=== PATIENT | female | born 1955 | race Caucasian/White ===

== ENCOUNTER 2017-11-22 14:57 | Emergency (ER) | payer OTHER ==
[2017-11-22] MEDS ORDERED: guaiFENesin 100 mg/5 ml Syrup UD PO STA (15:38)
--- NOTE | 2017-11-22 15:49 | ED PDOC ---
HPI: Headache Time Seen by Provider: 11/22/17 15:16 Chief Complaint (Nursing): Headache Chief Complaint (Provider): Headache, Dizziness, Cough History Per: Patient History/Exam Limitations: no limitations Onset/Duration Of Symptoms: Days (x2 weeks) Current Symptoms Are (Timing): Still Present Additional Complaint(s): 62 year old female presents to the ED for evaluation of a frontal 5/10 headache associated with intermittent dizziness, a cough productive of green sputum, nasal congestion, nausea, and a sore throat onset two weeks ago. Patient states her headache and dizziness are exacerbated after coughing. She also notes that three days ago, she had a brief episode of chest pain, but it resolved spontaneously and has not come back since. Patient reports taking Robitussin at home, her last dose being five hours ago. Of note, she has positive sick contact at home (daughter). Otherwise, (-) recent travel, (-) vision changes, (- ) weakness, (-) numbness, (-) fever, (-) chills, (-) abdominal pain, (-) vomiting, (-) diarrhea, (-) orthopnea, (-) dyspnea, (-) rash, (-) joint pain. PMD: none provided Past Medical History Reviewed: Historical Data, Nursing Documentation, Vital Signs Vital Signs: Last Vital Signs Temp 98.4 F 11/22/17 15:12 Pulse 73 11/22/17 15:12 Resp 20 11/22/17 15:12 BP Pulse Ox 98 11/22/17 15:12 - Medical History PMH: No Chronic Diseases - Surgical History Surgical History: - Family History Family History: States: Unknown Family Hx - Social History Current smoker - smoking cessation education provided: No Alcohol: None Drugs: Denies - Home Medications Home Medications: Ambulatory Orders Medication Instructions Recorded Fish Oil 03/29/14 Folic Acid 03/29/14 OMEGA 3 03/29/14 Albuterol HFA [Ventolin HFA 90 2 puff IH Q4 PRN #1 unit 06/12/15 mcg/actuation (8 g)] Azithromycin [Zithromax Z-Liban] 1 dose PO DAILY #1 pkt 06/12/15 Acetaminophen [Acetaminophen 8 650 mg PO Q8 PRN #21 tablet.er 11/22/17 Hour] Albuterol Sulfate [Ventolin Hfa] 1 puff IH Q6 PRN #1 unit 11/22/17 Benzonatate [Tessalon Perles] 100 mg PO Q8 PRN #21 tab 11/22/17 Levofloxacin [Levaquin] 750 mg PO DAILY #5 tablet 11/22/17 - Allergies Allergies/Adverse Reactions: Allergies Allergy/AdvReac Type Severity Reaction Status Date / Time Sulfa (Sulfonamide Allergy Severe Verified 06/12/15 16:22 Antibiotics) Review of Systems ROS Statement: Except As Marked, All Systems Reviewed And Found Negative Constitutional: Negative for: Fever, Chills Eyes: Negative for: Vision Change ENT: Positive for: Nose Congestion, Throat Pain Cardiovascular: Positive for: Chest Pain (but since resolved) Respiratory: Positive for: Cough (productive of green sputum). Negative for: Other (orthopnea, dyspnea) Gastrointestinal: Positive for: Nausea. Negative for: Vomiting, Abdominal Pain , Diarrhea Musculoskeletal: Negative for: Other (joint pain) Skin: Negative for: Rash Neurological: Positive for: Headache (frontal), Dizziness. Negative for: Weakness, Numbness Physical Exam - Reviewed Nursing Documentation Reviewed: Yes Vital Signs Reviewed: Yes - Physical Exam Comments: GENERAL APPEARANCE: Patient is awake, alert, oriented x 3, in no acute distress. Resting comfortably. SKIN: Warm, dry; (-) cyanosis, (-) rash. EYES: (-) conjunctival pallor, (-) scleral icterus, (-) conjunctival hemorrhage. ENMT: Mucous membranes are moist. TMs: (-) erythema, (-) bulging. Airway patent: (-) stridor. Pharynx: (+) mild erythema, (-) exudate, (-) hypertrophy. Sinuses: (-) tenderness. Uvula midline. Airway patent, (-) stridor. NECK: Supple, FROM (-) tenderness, (-) stiffness, (-) meningismus, (-) lymphadenopathy. CHEST AND RESPIRATORY: (+)Right sided rales, (-) rhonchi, (-) wheezes; breath sounds equal bilaterally. Speaking in full sentences, respirations even and nonlabored. HEART AND CARDIOVASCULAR: (-) irregularity; (-) murmur, (-) gallop. ABDOMEN AND GI: Soft; (-) tenderness, (-) guarding; (-) organomegaly (-) CVA tenderness. EXTREMITIES: (-) deformity; (-) cellulitis NEURO AND PSYCH: Mental status as above. athletic coach: Pupils equal and reactive; EOMI and painless; (-) facial asymmetry; tongue and uvula midline. Strength symmetric. Gait steady, speech clear. Cerebellar test: intact. - Laboratory Results Result Diagrams: 11/22/17 15:42 11/22/17 15:42 - ECG O2 Sat by Pulse Oximetry: 98 (RA) Pulse Ox Interpretation: Normal Medical Decision Making Medical Decision Making: Time: 153 Initial Impression: headache, dizziness, cough, sore throat, r/o pneumonia Initial Plan: --IV access --CT Head w/o contrast --EKG --BNP --CMP --Trop I --CBC with differential --CXR --Antivert 25 mg PO --Robitussin 100 mg PO --Throat culture --Rapid strep 1603 EKG: NSR at 76 bpm, (-) acute ST changes, QTc at 432, as read by PAUL. 1616 CXR FINDINGS: LUNGS: Peripheral right upper lobe infiltrate. PLEURA: No significant pleural effusion identified. No pneumothorax apparent. CARDIOVASCULAR: Normal. OSSEOUS STRUCTURES: No significant abnormalities. VISUALIZED UPPER ABDOMEN: Normal. OTHER FINDINGS: None. IMPRESSION: Peripheral right upper lobe infiltrate. In light of CXR findings, Levaquin 750mg IVPB ordered. Duoneb 2.5mh INH ordered. CBC reviewed, no elevation of WBC. H&H stable. Rapid Strep: Negative. Troponin and BNP: WNL. Patient with no evidence of respiratory distress or hypoxia. 1700 CT Head FINDINGS: HEMORRHAGE: No intracranial hemorrhage. BRAIN: No mass effect or edema. No atrophy or chronic microvascular ischemic changes. VENTRICLES: Unremarkable. No hydrocephalus. CALVARIUM: Unremarkable. PARANASAL SINUSES: Near complete bilateral frontal, ethmoid, maxillary and right sphenoid sinus mucosal thickening. MASTOID AIR CELLS: Unremarkable as visualized. No inflammatory changes. OTHER FINDINGS: None. IMPRESSION: No acute intracranial hemorrhage or territorial infarction. Pansinusitis. 1800 Patient resting comfortably. No additional complaints. Levaquin infusing. 1930 On re-evaluation, patient reports improvement of symptoms, denies SOB, chest pain, or dyspnea. Headache and dizziness resolved. On exam, patient remains AAOx3, in no acute distress. On exam, neck is supple, lungs sounds improved, cardiac RRR, abdomen is soft and non-tender, neuro exam shows no focal findings. VSS, stable for discharge. Follow up with [facility] as arranged by family practice resident, Dr Moctezuma. Diagnostic results d/w the patient in great detail. Dx of cough, community acquired pneumonia, headache, dizziness d/w the patient. Based on history, exam and diagnostic results plan will be for discharge and outpatient follow up. Advised to follow up with primary care physician/clinic in 1-2 days without fail. Advised to take medication as prescribed. Return to the emergency room at any time for any new or worsening symptoms. Patient states she fully agrees with and understands discharge instructions. States that she agrees with the plan and disposition. Verbalized and repeated discharge instructions and plan. I have given the patient opportunity to ask any additional questions. Scribe Attestation: Documented by Sheela Singh, acting as a scribe for Yodit Rios PA-C. Provider Scribe Attestation: All medical record entries made by the Scribe were at my direction and personally dictated by me. I have reviewed the chart and agree that the record accurately reflects my personal performance of the history, physical exam, medical decision making, and the department course for this patient. I have also personally directed, reviewed, and agree with the discharge instructions and disposition. Disposition - Clinical Impression Clinical Impression: Headache, Dizziness, Community acquired pneumonia, Cough in adult - Patient ED Disposition Is Patient to be Admitted: No Counseled Patient/Family Regarding: Studies Performed, Diagnosis, Need For Followup, Rx Given - Disposition Referrals: [facility] [place] [Outside] Disposition: Routine/Home Disposition Time: 19:53 Condition: STABLE Additional Instructions: FOLLOW UP WITH CLINIC WITHOUT FAIL. RETURN TO ED WITH ANY NEW OR WORSENING SYMPTOMS. TAKE ANTIBIOTICS UNTIL COMPLETE. Prescriptions: Acetaminophen [Acetaminophen 8 Hour] 650 mg PO Q8 PRN #21 tablet.er PRN Reason: FEVER, HEADACHE, PAIN Albuterol Sulfate [Ventolin Hfa] 1 puff IH Q6 PRN #1 unit PRN Reason: SHORTNESS OF BREATH Benzonatate [Tessalon Perles] 100 mg PO Q8 PRN #21 tab PRN Reason: Cough Levofloxacin [Levaquin] 750 mg PO DAILY #5 tablet Instructions: Pneumonia in Adults, Cough in Adults, Headache, Adult (DC), Dizziness, Nonvertigo, (DC), Community-Acquired Pneumonia, Adult (DC) Forms: Lizhi (Sami) Print Language: IRANIAN - POA Present On Arrival: None Results - Lab Results Lab Results: 11/22/17 11/22/17 11/22/17 15:42 15:42 15:42 WBC 10.5 RBC 3.78 L Hgb 11.7 L Hct 33.6 L MCV 88.9 MCH 30.9 MCHC 34.8 RDW 12.8 Plt Count 330 MPV 7.6 Neut % (Auto) 73.1 Lymph % (Auto) 13.9 L [place] % (Auto) 8.2 Eos % (Auto) 4.0 Baso % (Auto) 0.8 Neut # (Auto) 7.7 H Lymph # (Auto) 1.5 [place] # (Auto) 0.9 H Eos # (Auto) 0.4 Baso # (Auto) 0.1 Sodium 142 Potassium 4.1 Chloride 105 Carbon Dioxide 26 Anion Gap 15 BUN 19 H Creatinine 0.7 Est GFR ( Amer) > 60 Est GFR (Non-Af Amer) > 60 Random Glucose 107 H Calcium 8.7 Total Bilirubin 0.5 AST 37 H ALT 33 Alkaline Phosphatase 130 H Troponin I < 0.0120 NT-Pro-B Natriuret Pep 241 Total Protein 7.4 Albumin 4.0 Globulin 3.3 Albumin/Globulin Ratio 1.2 Grp A Beta Strep Ag Negative
[2017-11-22 15:51] LABS: BASO # 0.1 K/uL (0.0-0.2); BASO % 0.8 % (0.0-2.0); EOS # 0.4 K/uL (0.0-0.7); HEMOGLOBIN 11.7 g/dL (12.0-16.0); LYMPH # 1.5 K/uL (1.0-4.3); LYMPH % 13.9 % (20.0-40.0); MEAN CELL VOLUME 88.9 fl (81.0-99.0); MEAN CORPUSCULAR HEMOGLOBIN 30.9 pg (27.0-31.0); MEAN CORPUSCULAR HGB CONC 34.8 g/dL (33.0-37.0); MEAN PLATELET VOLUME 7.6 fl (7.2-11.7); MONO # 0.9 K/uL (0.0-0.8); MONO % 8.2 % (0.0-10.0); NEUT # 7.7 K/uL (1.8-7.0); NEUT % 73.1 % (50.0-75.0); RBC 3.78 Mil/uL (3.80-5.20); RED CELL DISTRIBUTION WIDTH 12.8 % (11.5-14.5); WHITE BLOOD COUNT 10.5 K/uL (4.8-10.8)
[2017-11-22 16:11] LABS: ALB/GLOB RATIO 1.2 (1.0-2.1); ALT/SGPT 33 U/L (9-52); AST/SGOT 37 U/L (14-36); BLOOD UREA NITROGEN 19 mg/dl (7-17); CALCIUM 8.7 mg/dL (8.4-10.2); GFR AFRICAN-AMERICAN > 60; GFR NON-AFRICAN AMERICAN > 60
[2017-11-22 16:17] LABS: B-TYPE NATRIURETIC PEPTIDE 241 pg/ml (0-900)
--- NOTE | 2017-11-22 16:18 | RAD ---
HISTORY: cough () green sputum COMPARISON: No prior. TECHNIQUE: Chest PA and lateral FINDINGS: LUNGS: Peripheral right upper lobe infiltrate. PLEURA: No significant pleural effusion identified. No pneumothorax apparent. CARDIOVASCULAR: Normal. OSSEOUS STRUCTURES: No significant abnormalities. VISUALIZED UPPER ABDOMEN: Normal. OTHER FINDINGS: None. IMPRESSION: Peripheral right upper lobe infiltrate.
[2017-11-22] MEDS ORDERED: levoFLOXacin 750 mg in D5W 750 MG/150 ML BAG IVPB STA (16:28)
[2017-11-22] MEDS ORDERED: guaiFENesin 100 mg/5 ml Syrup UD ONE (16:28)
[2017-11-22] MEDS ORDERED: Albuterol-Ipratrop 3 mg / 0.5 (3 ml) UD INH STA (16:31)
[2017-11-22] MEDS ORDERED: levoFLOXacin 750 mg in D5W 750 MG/150 ML BAG IVPB ONE (16:33)
[2017-11-22] MEDS ORDERED: Albuterol-Ipratrop 3 mg / 0.5 (3 ml) UD ONE (16:40)
--- NOTE | 2017-11-22 16:56 | CT ---
PROCEDURE: CT HEAD WITHOUT CONTRAST. HISTORY: headache, dizziness COMPARISON: None available. TECHNIQUE: Axial computed tomography images were obtained through the head/brain without intravenous contrast. Radiation dose: Total exam DLP = 770.8 mGy-cm. This CT exam was performed using one or more of the following dose reduction techniques: Automated exposure control, adjustment of the mA and/or kV according to patient size, and/or use of iterative reconstruction technique. FINDINGS: HEMORRHAGE: No intracranial hemorrhage. BRAIN: No mass effect or edema. No atrophy or chronic microvascular ischemic changes. VENTRICLES: Unremarkable. No hydrocephalus. CALVARIUM: Unremarkable. PARANASAL SINUSES: Near complete bilateral frontal, ethmoid, maxillary and right sphenoid sinus mucosal thickening. MASTOID AIR CELLS: Unremarkable as visualized. No inflammatory changes. OTHER FINDINGS: None. IMPRESSION: No acute intracranial hemorrhage or territorial infarction. Pansinusitis.
[2017-11-22 19:00] VITALS: BP 134/72; PULSE 89; RESP 19; TEMP 98.7
[2017-11-22 19:02] VITALS: O2SAT 98
--- NOTE | 2017-11-23 18:25 | CARD ---
APPROVED REPORT EKG Measurement Heart [id number] <Conclusion> Normal sinus rhythm Normal ECG
== END 2017-11-22 20:01 | disposition home or self-care (01) ==
LOC: H.ER 14:57
DX: R51 Headache (principal); R42 Dizziness and giddiness; J18.9 Pneumonia, unspecified organism; R05 Cough